=== PATIENT | male | born 1980 | race Caucasian/White ===

== ENCOUNTER 2022-10-11 09:53 | Outpatient (CLI) | payer BC, SELFPAY ==
--- NOTE | 2022-10-11 11:15 | W.ANESCHARGE ---
Anesthesia Charges Start Date/Time Anesthesia Start Date: 10/11/22 Anesthesia Start Time: 10:46 Stop Date/Time Anesthesia Stop Date: 10/11/22 Anesthesia Stop Time: 11:13
== END 2022-10-11 09:54 | disposition home or self-care (01) ==
PROVIDERS: PCP Family Medicine; Visit Provider Internal Medicine Gastroenterology
DX: Z12.11 Encounter for screening for malignant neoplasm of colon (principal); Z80.0 Family history of malignant neoplasm of digestive organs
CPT/HCPCS: 00811; 45380; 88305